=== PATIENT | female | born 1990 | race Caucasian/White ===

== ENCOUNTER 2016-04-15 10:01 | Emergency (ER) | payer BC, MEDICAID ==
[2016-04-15 10:06] VITALS: BMI 28.3
--- NOTE | 2016-04-15 10:27 | EDPRACDOC ---
- General Information Chief Complaint: Flu-Like Symptoms Stated Complaint: SHOB Time Seen by Provider: 04/15/16 10:18 Information Source: Patient Mode Of Arrival: Car Home Medications: Home Medications Albuterol Sulfate [Ventolin Hfa] 1 - 2 puff INH Q4H PRN 04/15/16 Azithromycin [Zithromax] 0 mg PO DAILY #6 tablet 04/15/16 Prednisone [Deltasone] 20 mg PO .TAPER 04/15/16 Allergies/Adverse Reactions: Allergies Allergy/AdvReac Type Severity Reaction Status Date / Time Penicillins Allergy Mild RASH/SWELLI Verified 04/15/16 10:05 NG nitrofurantoin Allergy Unknown N/V Verified 04/15/16 10:05 [From Macrobid] nitrofurantoin Allergy Unknown N/V Verified 04/15/16 10:05 macrocrystalline [From Macrobid] - History of Present Illness Symptoms Started: SAT Symptoms: Reports: Cough Recent Medications: Reports: Steroids Relevant History Of: Reports: None Shortness of Breath: None Cough Frequency: Intermittent Cough Description: Reports: Productive Rhinorrhea: Reports: Brown Ear Symptoms: Reports: None Associated Signs and Symptoms: Reports: Cough ED Past Medical History - History Reviewed Yes Nurses notes reviewed and agree except as marked - Patient Medical History Psychological History: Denies: Depression Systemic History: Denies: Cancer - Family Medical History Reports: Hypertension (mother,mgm), Diabetes (mother,mgm), Cardiac Disorders ( mother,mgm) - Social Medical History Smoking Status: Never smoker EDM Review of Systems - Review of Systems ROS Negative Except as Marked: Yes All systems reviewed and were negative except as marked - Physical Exam Constitutional: Alert (Awake), No apparent distress Oriented to: Time, Person, Place Last recorded Vital Signs: Last Vital Signs Temp 97.4 F L 04/15/16 10:02 Pulse 90 04/15/16 10:02 Resp 18 04/15/16 10:02 BP 135/73 04/15/16 10:02 Pulse Ox 100 04/15/16 10:02 Oxygen Pulse Oxygen Saturation 100 O2 Device Oxygen Flow Rate Fraction of Inspired Oxygen ( FIO2) - HEENT Head: Normal ( normocephalic) Eye Exam: Normal (PERRL, EOMI, Sclera white) Oropharynx: Normal (Pharynx:Moist without exudate,Gums-no swelling) Tympanic Membrane: Normal ENT EAC: Normal TMJ: Normal Nose: No Symptoms Reported (septum midline) Neck: Normal (FROM, trachea at midline) - Respiratory/Cardiovascular Respiratory: Normal - CTA (BBS clear to auscultation without adventitious sounds ) Cardiovascular: Normal (RRR without murmur, gallop or rub) - GI Auscultation: Normal (NABS) Palpation: Normal (Soft,No rebound or guarding, non distended) Tenderness: Non tender Rodriguez's Sign: Negative - Musculoskeletal Back: Normal (Non-Tender) Extremities: Normal (Normal tone, Pulses 2+ No cyanosis or edema, FROM) - Integumentary Skin: Normal, Warm, Dry Lymphatics: Normal (no adenopathy) - Neurologic Memory Impaired: Normal Motor Function: Normal (Normal tone, Pulses 2+ No cyanosis or edema, FROM) Cranial Nerve: Normal (CN II-X11 intact sensation, strength 5/5) Cerebellar: Normal Mood Description: Normal Perception: Normal Decision Time to Discharge: 10:27 - Departure Yes I personally saw and evaluated the patient. Disposition: Home Condition: Good Final Diagnosis: Acute bronchitis Instructions: Acute Bronchitis (ED) Education/Counseling Given To: Patient, Family Member Education/Counseling Given Regarding: Diagnosis, Treatment, Prognosis Referrals: None,No Provider [Primary Care Provider] - One Week John Barbosa Jr, DO [NonStaff] - One Week Prescriptions: New Azithromycin [Zithromax] 0 mg PO DAILY #6 tablet No Action Prednisone [Deltasone] 20 mg PO .TAPER Albuterol Sulfate [Ventolin Hfa] 1 - 2 puff INH Q4H PRN PRN Reason: SHORTNESS OF BREATH
[2016-04-15 10:44] VITALS: BP 115/77; PULSE 82; TEMP 97.8
== END 2016-04-15 10:44 | disposition home or self-care (01) ==
LOC: ED 10:01
DX: J20.9 Acute bronchitis, unspecified (principal)
CPT/HCPCS: 99283